=== PATIENT | male | born 1990 | race Caucasian/White ===

== ENCOUNTER 2016-12-26 20:17 | Emergency (ER) | payer OTHER ==
[~2016-12-26] VITALS: Ht 190.5 cm; Wt 90.7 kg
[2016-12-26 20:34] VITALS: TEMP 36.7; Ht 190.5 cm; Wt 90.7 kg
[2016-12-26] MEDS ORDERED: IBUPROFEN 600 MG TAB PO STA (20:40)
[2016-12-26] MEDS ORDERED: LIDOCAINE/EPINEPHRINE 1% 20 ML VIAL ONE (21:06)
--- NOTE | 2016-12-26 21:06 | DIAGNOSTIC IMAGING REPORT ---
RIGHT FIFTH FINGER 3 VIEWS CLINICAL HISTORY: Right fifth finger pain status post trauma COMPARISON: None. DISCUSSION: There is a dorsal ulnar dislocation at the level the proximal interphalangeal joint. There is a punctate ossific density consistent with a small chip fracture. IMPRESSION: 1. Dislocation at the level of the proximal interphalangeal joint 2. Tiny chip/avulsion fracture Electronically signed by: Slim Ward M.D. 12/26/2016 9:05 PM Dictated Date/Time: 12/26/2016 9:04 PM
[2016-12-26] MEDS ORDERED: XYLOCAINE 1%/SOD BICARB 20 ML VIAL INFIL ONE (21:15)
--- NOTE | 2016-12-26 22:04 | EMERGENCY ROOM VISIT NOTE ---
ED Visit Note First contact with patient: 20:36 CHIEF COMPLAINT: Right fifth Finger injury today HISTORY OF PRESENT ILLNESS: This 26-year-old male presents the ER with chief complaint of right fifth finger injury. The patient was playing volleyball one hour ago and when he went up to block the ball present his right fifth finger backwards. The patient now has deformity and pain in the right fifth finger. He denies any numbness and tingling. The patient is right-hand dominant. He has not taken anything for pain. REVIEW OF SYSTEMS: 6 system review was performed and was negative unless stated otherwise in history of present illness. PMH: The patient is healthy; there is no significant medical or surgical history. SOCIAL HISTORY: Patient lives alone. The patient denies tobacco use but admits to occasional alcohol use. PHYSICAL EXAM: Vital Signs: Were reviewed Reviewed Nurse's notes.GEN.: 26-year- old male appears in no acute distress. MENTAL Status: Alert and oriented 3. RIGHT FIFTH FINGER: There is an obvious deformity at the PIP joint of the finger. Sensation is intact. The patient is unable to flex his digit. EMERGENCY DEPARTMENT COURSE: The patient was evaluated. The patient was given Motrin 600 mg by mouth for pain. X-ray of the right fifth finger was ordered interpreted by the radiologist and myself. DIAGNOSTICS:RIGHT FIFTH FINGER 3 VIEWS CLINICAL HISTORY: Right fifth finger pain status post trauma COMPARISON: None. DISCUSSION: There is a dorsal ulnar dislocation at the level the proximal interphalangeal joint. There is a punctate ossific density consistent with a small chip fracture. IMPRESSION: 1. Dislocation at the level of the proximal interphalangeal joint 2. Tiny chip/avulsion fracture Electronically signed by: Slim Ward M.D. 12/26/2016 9:05 PM The patient was informed of the findings. A digital block was performed using 1 % buffered lidocaine with adequate anesthesia. I attempted to reduce the dislocation without any success. Dr. Siu then attempted without success. Dr. Meyer was finally able to reduce the dislocation. Postreduction films show the bones in good alignment. Small avulsion fracture still noted as prior x-ray. The patient's finger was ricardo taped to the adjacent finger. The patient was discharged home in stable condition. DIAGNOSIS: Dislocated PIP joint of the right fifth finger DISCHARGE INSTRUCTIONS & TREATMENT: Keep the finger ricardo taped to the next finger for about 10 days. Ice and elevation for 24 hours. Ibuprofen, 600 mg every 6 hours for pain. Current/Historical Medications No Active Prescriptions or Reported Meds Allergies Coded Allergies: No Known Allergies (Unverified , 12/26/16) Vital Signs Date Time Temp Pulse Resp B/P (MAP) Pulse Ox O2 Delivery O2 Flow Rate FiO2 12/26/16 20:34 36.7 73 18 96 Room Air Medications Administered Medications (Trade) Dose Ordered Sig/[place]urel Route Start Time Stop Time Status Last Admin Dose Admin Ibuprofen (Motrin Tab) 600 mg NOW STAT PO 12/26/16 20:40 12/26/16 20:42 DC 12/26/16 21:01 600 MG Lidocaine HCl (Buffered Lidocaine 1% Inj) 20 ml NOW ONCE INFIL 12/26/16 21:15 12/26/16 21:16 DC 12/26/16 21:10 20 ML Departure Information Prescriptions No Active Prescriptions or Reported Meds Referrals No Doctor, Assigned (PCP) Patient Instructions [facility]
--- NOTE | 2016-12-26 22:05 | DIAGNOSTIC IMAGING REPORT ---
RIGHT FIFTH FINGER 3 VIEWS CLINICAL HISTORY: Dislocation status post reduction COMPARISON: Earlier in the evening DISCUSSION: There is been interval reduction of the previously described dislocation. There is a tiny bony fragment located at the volar aspect of the proximal to phalangeal joint. This likely represents a chip/avulsion fracture arising from the volar base of the middle phalanx. IMPRESSION: 1. Interval reduction of the previous described dislocation 2. Tiny chip/avulsion fracture, likely arising from the volar base of the middle phalanx Electronically signed by: Slim Ward M.D. 12/26/2016 10:04 PM Dictated Date/Time: 12/26/2016 10:03 PM
[2016-12-26 22:08] VITALS: PULSE 60; O2SAT 100
== END 2016-12-26 22:11 | disposition home or self-care (01) ==
LOC: C.EDB 20:20 → C.EDD 22:11
DX: S63.286A Dislocation of proximal interphalangeal joint of right little finger, initial encounter (principal); W21.06XA Struck by volleyball, initial encounter; Y92.89 Other specified places as the place of occurrence of the external cause; Y93.68 Activity, volleyball (beach) (court)